=== PATIENT | female | born 1980 ===

== ENCOUNTER → 2016-08-09 06:36 | Day surgery (SDC) | payer OTHER ==
[~2016-08-09 06:36] MED LIST: Atracurium* 10 MG/ML 10 ML VIAL ONE; Buffered Lidocaine 1% SYR 3ML* 3 ML/SYR SYRINGE INTRADERM ONE; Buffered Lidocaine 1% SYR 3ML* 3 ML/SYR SYRINGE ONE; Bupivacaine 0.25% EPI 200,000* 30 ML SDV ONE; Bupivacaine 0.25% SDV* 30 ML ONE; Dexamethasone IV* 4 MG/ML 1 ML (4 MG) ONE; Famotidine IV* 10 MG/ML 2 ML (20 mg) IV ONE; Famotidine IV* 10 MG/ML 2 ML (20 mg) ONE; Glycopyrrolate IV* 0.2 MG/ML 1 ML VIAL ONE; KETAMINE HCL* 50 MG/ML 10 ML VIAL ONE; Ketorolac INJ* 30 MG/ML 1 ML VIAL ONE; Lidocaine 2% PF* 10 ML AMP ONE; Midazolam* 1 MG/ML 5 ML VIAL (5 MG) ONE; Morphine INJ* 2 MG/ML 1 ML CARPUJECT IV PRN; Neostigmine Methylsulfate* 2 MG/2 ML SYRINGE ONE; Ondansetron INJ* 2 MG/ML VIAL ONE; PROCHLORPERAZINE INJ 5 MG/ML 2 ML VIAL IV PRN; PROCHLORPERAZINE INJ 5 MG/ML 2 ML VIAL ONE; Phenylephrine INJ* 10 MG/ML 1 ML VIAL (10 MG) ONE; Propofol* 10 MG/ML 20 ML BTL IV PUSH ONE; Scopolamine 1.5 mg* PATCH ONE; Scopolamine 1.5 mg* PATCH TRANSDERM SCH; Scopolamine PATCH Remove* 1 NOTE MISC PATCH OFF SCH; fentaNYL* 50 MCG/ML 2 ML VIAL (100 MCG VIAL) ONE; oxyCODONE/Acetamin 5/325 MG* TAB ONE; oxyCODONE/Acetamin 5/325 MG* TAB PO PRN
[2016-08-09 07:09] LABS: UR Preg Internal Control QC Line Present
[2016-08-09 07:10] LABS: Manual Entry Verification HAN0055
[2016-08-09 07:26] LABS: Hematocrit 35 % (35-47); Mean Corpuscular HGB Conc 34 g/dl (31-36); Mean Corpuscular Hemoglobin 29 pg (27-31); Mean Corpuscular Volume 84 fL (80-97); Mean Platelet Volume 8 um3 (7.4-10.4); Red Blood Count 4.15 10^6/ul (4.0-5.4); Red Cell Distribution Width 14 % (10.5-15); White Blood Count 7.8 10^3/ul (3.5-10.8)
[2016-08-09 07:27] LABS: Add Diff/Slide Review? Slide Review Added; Comments Flag Yes
[2016-08-09 07:41] LABS: BUN/Creatinine Ratio 27.4 (8-20); Calcium 9.7 mg/dL (8.6-10.3); EGFR African American 141.7 (>60); EGFR Non-African American 110.2 (>60); Potassium 3.7 mmol/L (3.5-5.0)
[2016-08-09] MEDS: fentaNYL* 50 MCG/ML 2 ML VIAL (100 MCG VIAL) IV PRN ×2 (09:47→10:45)
[2016-08-09 11:33] VITALS: BP 118/70
--- NOTE | 2016-08-09 22:40 | OP ---
DATE OF OPERATION: 08/09/16 [facility] DATE OF : 82 SURGEON: Lashaun Madison MD ANESTHESIOLOGIST: Dr. Charles. ANESTHESIA: General. PRE-OP DIAGNOSES: Satisfied parity. POST-OP DIAGNOSES: Satisfied parity and perirectal peritoneal nodule. OPERATIVE PROCEDURE: Laparoscopic bilateral tubal ligation with Filshie clips and excision of peritoneal nodule. ESTIMATED BLOOD LOSS: Less than 20 cc. URINE OUTPUT: 100 cc. IV FLUIDS: 1800 cc lactated Ringer's. MATERIALS TO LAB: Fragment of peritoneal nodule. INDICATIONS: This patient is a 35-year-old 4, para 4, with a recent , desiring permanent sterilization. The patient signed consent during the . She was extensively counseled regarding the permanence of the procedure and a consent was signed. FINDING: Normal-appearing uterus, fallopian tubes, and ovaries. Approximately 1 cm perirectal peritoneal nodule was noted to be present and attached with just filmy connections, so this was excised without difficulty and a portion of it was removed for pathology. COMPLICATIONS: None. DESCRIPTION OF PROCEDURE: The risks, benefits, and alternatives were described to the patient and informed consent was obtained. The patient was taken to the operating room with IV running, where general anesthesia was induced and found to be adequate. The patient was prepped and draped in a normal sterile fashion in the low lithotomy position in Chip stirrups. A time-out was performed. The bladder was emptied. A bivalved speculum was placed in the vagina and a Hulka tenaculum was placed on the anterior cervix. The speculum was then removed and attention was then returned to the abdomen. 0.25% Marcaine was injected into the umbilicus. A 5 mm incision was made with the scalpel in the umbilicus. Using penetrating towel clamps to elevate the skin, a 5 mm bladeless trocar was placed through the incision and entered the peritoneal cavity without difficulty with the camera in place. The abdomen was then insufflated with carbon dioxide gas to a maximum pressure of 15 mmHg. The area below the trocar insertion sites was carefully inspected and there was no evidence of trauma or bleeding. A second suprapubic incision was then made after injecting additional 0.25% Marcaine. This was approximately 8 mm in size and an 8 mm bladeless trocar was then placed through this incision into the peritoneal cavity without difficulty. Using the Hulka tenaculum for manipulation, there was good visualization of the entire pelvis and the findings as noted above. A Filshie clip was then applied to each fallopian tube taking care to completely cross the entire tube. Each of these was placed about 2 to 3 cm from the cornua. Attention was then turned to the perirectal nodule that was noted during evaluation of the pelvis. Endoshears were then used to gently dissect this and excise it from the peritoneum and adjacent rectum. Dr. Fritz, a general surgeon, was consulted to see if he had any concerns and he felt that it was likely just a peritoneal nodule with mostly fatty tissue. We initially attempted to place this into a 5 mm Endobag, but we were unable to get it into the bag without an additional port. A grasper was used to grasp the nodule and bring it up part way into the port. Some of the nodule was able to be removed, but some of it was left inside the incision. Despite extending the incision, we were unable to locate any additional tissue. At that time, there was excellent hemostasis and the procedure was discontinued. The gas was allowed to escape completely. The suprapubic incision was reapproximated using 4-0 Monocryl in a subcuticular stitch. Both incisions were then covered with DermaFlex skin adhesive. The Hulka tenaculum was removed and the patient was returned to the supine position. The patient tolerated the procedure well. Sponge, lap, and needle counts were correct x2. [id number]/[facility] #: [id number] [facility]
== END | disposition home or self-care (01) ==
LOC: OR 06:36
PROVIDERS: ATTEND Obstetrics & Gynecology
DX: Z30.2 Encounter for sterilization (principal)
CPT/HCPCS: 36415; 80048; 81025; 85025; 86850; 86900; 86901; 88305; A9270-GY; C1776; J0780; J1100; J1885; J2001; J2250; J2405; J2704; J3010

== ENCOUNTER 2017-02-12 12:44 | Emergency (ER) | payer OTHER ==
[2017-02-12 13:01] VITALS: BP 126/72
--- NOTE | 2017-02-12 14:03 | UC ---
Dizzy HPI HPI Summary: ONSET OF DIZZINESS, NAUSEA AND ALVARADO LAST NIGHT. SEVERAL EPISODES OF EMESIS. DECREASED APPETITE. IS 9 MONTHS POST . 2 WEEKS AGO RESTARTED HER AMITRIPTYLINE (FOR ALVARADO), SERTRALINE (FOR ANXIETY) AND AMBIEN (FOR SLEEP DIFFICULTY). NOT BETTER WITH REST. GETS WORSE WHEN SHE CHANGES POSITION. FELT LIKE SHE WAS GOING TO PASS OUT BUT DIDN'T. - History Of Current Complaint Chief Complaint: UCDizziness Stated Complaint: DIZZY,NAUSEA Time Seen by Provider: 02/12/17 12:45 Hx Obtained From: Patient, Family/Addiction Medicine Physician - FRIEND, Hx Last Menstrual Period: none for 9 mo Onset/Duration: Sudden Onset, Lasting Hours, Still Present Timing: Constant Severity Initially: Moderate Severity Currently: Moderate Pain Intensity: 0 Pain Scale Used: 0-10 Numeric Character: Room Spinning, Dizzy Aggravating Factor(s): Position Change Alleviating Factor(s): Nothing Associated Signs And Symptoms: Positive: Nausea, Vomiting, Unsteady Gait - Allergies/Home Medications Allergies/Adverse Reactions: Allergies Allergy/AdvReac Type Severity Reaction Status Date / Time No Known Allergies Allergy Verified 02/12/17 13:02 Home Medications: Home Medications Amitriptyline TAB* [Elavil TAB*] 10 mg PO DAILY 02/12/17 [History Confirmed 02/21] Sertraline HCl [Zoloft] 25 mg PO DAILY 02/12/17 [History Confirmed 02/12/17] Zolpidem TAB* [Ambien*] 10 mg PO DAILY 02/12/17 [History Confirmed 02/12/17] PMH/Surg Hx/FS Hx/Imm Hx - Additional Past Medical History Additional PMH: SLEEP DIFFICULTY Other Neurological History: HEADACHES Psychological History: Anxiety - Surgical History Surgical History: Yes Surgery Procedure, Year, and Place: C section - Family History Known Family History: Negative: Cardiac Disease, Hypertension, Diabetes - Social History Alcohol Use: None Substance Use Type: None Smoking Status (MU): Never Smoked Tobacco Have You Smoked in the Last Year: No - Immunization History Most Recent Influenza Vaccination: 03/18/16 Most Recent Tetanus Shot: 11/16/13 Most Recent Pneumonia Vaccination: none Review of Systems Constitutional: Negative Skin: Negative Respiratory: Negative Cardiovascular: Negative Gastrointestinal: Negative Neurological: Other - DIZZY All Other Systems Reviewed And Are Negative: Yes Physical Exam Triage Information Reviewed: Yes Appearance: Well-Nourished, Pain Distress - APPEARS UNCOMFORTABLE, EYES CLOSED Vital Signs: Initial Vital Signs Temp 98.2 F 02/12/17 12:50 Pulse 67 02/12/17 12:50 Resp 16 02/12/17 12:50 BP 126/72 02/12/17 12:50 Pulse Ox 97 02/12/17 12:50 Vital Signs Reviewed: Yes Eyes: Positive: Conjunctiva Clear ENT: Positive: Hearing grossly normal Neck: Positive: Supple, Nontender, No Lymphadenopathy Respiratory Exam: Normal Cardiovascular Exam: Normal Abdomen Description: Positive: Soft Musculoskeletal: Positive: No Edema Neurological: Positive: Alert Psychological: Positive: Normal Response To Family, Age Appropriate Behavior Skin: Negative: rashes Diagnostics - Laboratory Diagnostic Studies Completed/Ordered: URINE DIP UNREMARKABLE. URINE HCG NEGATIVE - EKG Cardiac Rate: NL - 62 BPM Cardiac Rhythm: Sinus: Normal Ectopy: None ST Segment: Normal Dizzy Course/Dx - Differential Dx/Diagnosis Provider Diagnoses: DIZZINESS Discharge - Discharge Plan Condition: Stable Disposition: OTHER Discharge Disposition Comment: TO [facility] BY PRIVATE CAR Patient Education Materials: Dizziness (ED) Referrals: No Primary Care Phys,NOPCP [Primary Care Provider] - Additional Instructions: URINE TEST NEGATIVE. UNCLEAR ETIOLOGY OF YOUR DIZZINESS. IT MAY BE RELATED TO STARTING YOUR MEDICATIONS 2 WEEKS AGO. GO DIRECTLY TO THE ER FROM HERE. CALL THE NUMBER BELOW FOR ASSISTANCE IN ESTABLISHING WITH A PCP An additional resource available to assist in finding the appropriate physician for your health care needs is the [facility] ([facility]). You may contact them by calling [phone].
== END 2017-02-12 14:03 ==
LOC: UCEAST 12:44
DX: R42 Dizziness and giddiness (principal); G47.9 Sleep disorder, unspecified; R51 Headache; F41.9 Anxiety disorder, unspecified; Z32.02 Encounter for pregnancy test, result negative
CPT/HCPCS: 81003; 84702; 93005; 99212; G0463

== ENCOUNTER 2017-02-12 14:25 | Emergency (ER) | payer OTHER ==
[2017-02-12] MEDS ORDERED: Ondansetron INJ* 2 MG/ML VIAL IV ONE (14:42)
[2017-02-12] MEDS ORDERED: Diazepam TAB(*) 5 MG PO ONE (14:42)
[2017-02-12] MEDS ORDERED: NS 0.9% 1000 ML* 1,000 ML IV ONE (14:42)
[2017-02-12] MEDS ORDERED: Meclizine TAB* 12.5 MG PO ONE (14:42)
--- NOTE | 2017-02-12 15:11 | RAD ---
INDICATION: Dizziness COMPARISON: None. TECHNIQUE: Contiguous axial sections of the brain were obtained from the skull base to the vertex without contrast. FINDINGS: The ventricles, cisterns and sulci are within normal limits. The koroma-white matter differentiation is adequately maintained and there is no sulcal effacement. No significant focal abnormality or mass effect is present. There is no evidence for intracranial hemorrhage. No significant focal osseous abnormality is present. The mastoid air cells appear clear. There is mild mucosal thickening at the visualized portion of the right maxillary sinus and mild mucosal thickening of the anterior ethmoid air cells. IMPRESSION: Mild paranasal sinus mucosal disease in this otherwise normal CT of the brain.
[2017-02-12 15:18] LABS: Hematocrit 36 % (35-47); Hemoglobin 12.2 g/dl (12.0-16.0); Mean Corpuscular HGB Conc 34 g/dl (31-36); Mean Corpuscular Hemoglobin 30 pg (27-31); Mean Corpuscular Volume 88 fL (80-97); Mean Platelet Volume 7 um3 (7.4-10.4); Red Blood Count 4.07 10^6/ul (4.0-5.4); Red Cell Distribution Width 13 % (10.5-15); White Blood Count 8.2 10^3/ul (3.5-10.8)
[2017-02-12 15:40] LABS: ALT 35 U/L (7-52); AST 19 U/L (13-39); Albumin 4.5 g/dL (3.2-5.2); Alkaline Phosphatase 79 U/L (34-104); Anion Gap 3 mmol/L (2-11); BUN/Creatinine Ratio 19.3 (8-20); Blood Urea Nitrogen 11 mg/dL (6-24); C Reactive Protein 2.86 mg/L (< 5.00); CO2 Carbon Dioxide 29 mmol/L (22-32); Calcium 9.7 mg/dL (8.6-10.3); Chloride 106 mmol/L (101-111); EGFR African American 155.2 (>60); EGFR Non-African American 120.7 (>60); Glucose 128 mg/dL (70-100); Potassium 3.7 mmol/L (3.5-5.0); Sodium 138 mmol/L (133-145); Total Protein 7.5 g/dL (6.4-8.9)
[2017-02-12 16:00] LABS: Alcohol < 10 mg/dL (<10)
[2017-02-12] MEDS ORDERED: Amoxicillin/Clavulanate TAB* 875 MG PO ONE (16:03)
[2017-02-12 16:11] LABS: TSH (Thyroid Stimulating Horm) 0.13 mcIU/mL (0.34-5.60)
[2017-02-12 18:39] VITALS: BP 99/68
--- NOTE | 2017-02-13 09:03 | ED ---
Anthony Kerr Alfonso, scribed for Alex Kay MD on 02/12/17 at 1531 . Dizziness - HPI Summary HPI Summary: This patient is a 36 year old F presenting from [facility] to [facility] accompanied by and female friend with a chief complaint of dizziness since yesterday afternoon. The CC is described as room spinning. The patient rates the pain 9/ 10 in severity. Symptoms aggravated by movement and alleviated by lying down. Patient reports nausea, vomiting (4 times), and headache. Patient denies ear pain, sore throat, CP, and SOB. She reports a URI last week which she reports improved from. She had a baby 9 months ago and has not had a menstrual cycle since then. PMHx of gestational DM. - History Of Current Complaint Chief Complaint: EDDizziness Stated Complaint: DIZZINESS FROM CC Time Seen by Provider: 02/12/17 14:42 Hx Obtained From: Patient, Family/Va Underwriter Onset/Duration: Still Present Timing: Days - Yesterday afternoon Severity Initially: Moderate Severity Currently: Moderate Character: Room Spinning Aggravating Factor(s): Other - Movement Alleviating Factor(s): Lying Down Associated Signs And Symptoms: Positive: Other: - Patient reports nausea, vomiting (4 times), and headache. Patient denies ear pain, sore throat, CP, and SOB. - Risk Factors Cardiac Risk Factors: Diabetes - Gestational - Allergies/Home Medications Allergies/Adverse Reactions: Allergies Allergy/AdvReac Type Severity Reaction Status Date / Time No Known Allergies Allergy Verified 02/12/17 14:28 PMH/Surg Hx/FS Hx/Imm Hx Endocrine/Hematology History: Reports: Hx Diabetes - HX OF GESTATIONAL DIABETES Cardiovascular History: Denies: Hx Hypertension History: Denies: Hx Renal Disease Sensory History: Reports: Hx Contacts or Glasses - GLASSES Denies: Hx Hearing Aid Opthamlomology History: Reports: Hx Contacts or Glasses - GLASSES - Surgical History Surgery Procedure, Year, and Place: C section Infectious Disease History: Denies: Traveled Outside the [place] in Last 30 Days - Family History Known Family History: Negative: Cardiac Disease, Hypertension, Diabetes - Social History Alcohol Use: None Substance Use Type: Reports: None Smoking Status (MU): Never Smoked Tobacco Have You Smoked in the Last Year: No Review of Systems Negative: Sore Throat, Ear Ache Negative: Chest Pain Negative: Shortness Of Breath Positive: Vomiting, Nausea Neurological: Other - Positive dizziness, and headache All Other Systems Reviewed And Are Negative: Yes Physical Exam - Summary Physical Exam Summary: VITAL SIGNS: Reviewed. GENERAL: Patient is a well-developed and nourished female who is lying comfortable in the stretcher. Patient is not in any acute respiratory distress. HEAD AND FACE: No signs of trauma. No ecchymosis, hematomas or skull depressions. No sinus tenderness. EYES: PERRLA, EOMI x 2, No injected conjunctiva, no nystagmus. EARS: Hearing grossly intact. Ear canals and tympanic membranes are within normal limits. MOUTH: Oropharynx within normal limits. NECK: Supple, trachea is midline, no adenopathy, no JVD, no carotid bruit, no c- spine tenderness, neck with full ROM. CHEST: Symmetric, no tenderness at palpation LUNGS: Clear to auscultation bilaterally. No wheezing or crackles. CVS: Regular rate and rhythm, S1 and S2 present, no murmurs or gallops appreciated. ABDOMEN: Soft, non-tender. No signs of distention. No rebound no guarding, and no masses palpated. Bowel sounds are normal. EXTREMITIES: FROM in all major joints, no edema, no cyanosis or clubbing. NEURO: Alert and oriented x 3. No acute neurological deficits. Speech is normal and follows commands. SKIN: Dry and warm Triage Information Reviewed: Yes Vital Signs On Initial Exam: Initial Vitals Temp Pulse Resp BP Pulse Ox 98 F 63 16 114/68 99 02/12/17 14:28 02/12/17 14:28 02/12/17 14:28 02/12/17 14:28 02/12/17 14:28 Vital Signs Reviewed: Yes Diagnostics - Vital Signs Vital Signs Temp Pulse Resp BP Pulse Ox 02/12/17 14:28 98 F 63 16 114/68 99 - Laboratory Lab Results: Lab Results 02/12/17 Range/Units 15:09 WBC 8.2 (3.5-10.8) 10^3/ul RBC 4.07 (4.0-5.4) 10^6/ul Hgb 12.2 (12.0-16.0) g/dl Hct 36 (35-47) % MCV 88 (80-97) fL MCH 30 (27-31) pg MCHC 34 (31-36) g/dl RDW 13 (10.5-15) % Plt Count 227 (150-450) 10^3/ul MPV 7 L (7.4-10.4) um3 Neut % (Auto) 67.7 (38-83) % Lymph % (Auto) 24.8 L (25-47) % Berrien % (Auto) 6.0 (1-9) % Eos % (Auto) 1.1 (0-6) % Baso % (Auto) 0.4 (0-2) % Absolute Neuts (auto) 5.5 (1.5-7.7) 10^3/ul Absolute Lymphs (auto) 2.0 (1.0-4.8) 10^3/ul Absolute Monos (auto) 0.5 (0-0.8) 10^3/ul Absolute Eos (auto) 0.1 (0-0.6) 10^3/ul Absolute Basos (auto) 0 (0-0.2) 10^3/ul Absolute Nucleated RBC 0 10^3/ul Nucleated RBC % 0 Result Diagrams: 02/12/17 15:09 02/12/17 15:09 Lab Statement: Any lab studies that have been ordered have been reviewed, and results considered in the medical decision making process. - CT Brain CT Interpretation Completed By: Radiologist - Mild paranasal sinus mucosal disease in this otherwise normal CT of the brain. - EKG 1447 Cardiac Rate: NL - BPM 61 EKG Rhythm: Sinus Rhythm Ectopy: None Re-Evaluation - Re-Evaluation First Eval Re-Evaluation Time: 17:15 Change: Improved Comment: Patient is feeling much improved. She is eating and drinking. Dizzy Course/Dx - Course Course Of Treatment: This patient is a 36 year old F presenting from [facility] to [facility] accompanied by and female friend with a chief complaint of dizziness since yesterday afternoon. The CC is described as room spinning. The patient rates the pain 9/10 in severity. Symptoms aggravated by movement and alleviated by lying down. Patient reports nausea, vomiting (4 times), and headache. Patient denies ear pain, sore throat, CP, and SOB. She reports a URI last week which she reports improved from. She had a baby 9 months ago and has not had a menstrual cycle since then. PMHx of gestational DM. Assessment/Plan: Test results without any significant abnormalities except for glucose of 128 and TSH .13. EKG reveals NSR. Brain CT reveals Mild paranasal sinus mucosal disease in this otherwise normal CT of the brain. In the ED course the patient was given IV fluids, Zofran for nausea, and antivert for dizziness. After these medications were given the symptoms have resolved. At this point the patient is eating and drinking without any pain. She was given augmented for sinusitis. She will be discharged home with PCP follow up. Patient is hemodynamically stable and alert and oriented to person, place, and time. I discussed all the findings and test results with the patient. Patient was instructed to return to the emergency room immediately if any of the symptoms return or worsens. Patient understands and agrees. Plan of care was discussed with the patient and patient understands and agrees with the plan of care. All questions were answered at patient satisfaction. There were no further complaints or concerns. Patient is alert and oriented x 3. Patient vital signs are stable. Patient is to follow up with primary care physician in the next 2 to 3 days. Patient understands and agrees. - Diagnoses Provider Diagnoses: Vertigo, Sinusitis Discharge - Discharge Plan Condition: Stable Disposition: HOME Prescriptions: Amoxicillin/Clavulanate TAB* [Augmentin TAB 875*] 875 mg PO BID #9 tab Meclizine TAB* [Antivert 12.5 TAB*] 25 mg PO TID PRN #30 tab PRN Reason: Vertigo Ondansetron TAB* [Zofran 4 MG Tab*] 4 mg PO Q6H PRN #10 tab PRN Reason: Vomiting Patient Education Materials: Sinusitis (ED), Vertigo (ED) Referrals: [facility] PHYSICIAN REFERRAL [Outside] - 3 Days The documentation as recorded by the Anthony george Alfonso accurately reflects the service I personally performed and the decisions made by me, Alex Kay MD.
== END 2017-02-12 18:39 | disposition home or self-care (01) ==
LOC: ED 14:25
DX: R11.2 Nausea with vomiting, unspecified (principal); J32.9 Chronic sinusitis, unspecified; R51 Headache; R42 Dizziness and giddiness
CPT/HCPCS: 36415; 70450; 80053; 80320; 83605; 83735; 84443; 84484; 84702; 85025; 86140; 93005; 99283; A9270-GY; G0480; J2405